=== PATIENT | female | born 1950 | race Caucasian/White ===

== ENCOUNTER 2024-04-26 19:21 | Emergency (ER) | payer MEDICARE, OTHER ==
[2024-04-26] MEDS ORDERED: MULT-632 PO (23:28)
[2024-04-26] MEDS ORDERED: LORA10TA75 PO (23:28)
[2024-04-26] MEDS ORDERED: [UNRECOGNIZED DRUG - CODE] PO (23:28)
[2024-04-26] MEDS ORDERED: IPRA4AER IH (23:28)
[2024-04-26] MEDS ORDERED: FEXO180T72 PO (23:28)
[2024-04-26] MEDS ORDERED: [UNRECOGNIZED DRUG - REMARK] (23:28)
[2024-04-26] MEDS ORDERED: CALC-26 PO (23:28)
[2024-04-26] MEDS ORDERED: FLUT1BLS15 IH (23:28)
[2024-04-26] MEDS ORDERED: ASPI-929 PO (23:28)
[2024-04-26] MEDS ORDERED: ROSU40TA PO (23:28)
[2024-04-26] MEDS ORDERED: AMLO-170 PO (23:28)
[2024-04-26] MEDS ORDERED: PROP10TA PO (23:28)
== END 2024-04-26 21:44 | disposition critical access hospital (66) ==
LOC: ER 19:21
DX: R55 Syncope and collapse (principal)
CPT/HCPCS: 99285; 70450; 71045; 80053; 85025; 82948; 36415; 84484; 83880; 82550; 85610; 85730; 93005; J7030; J8499